=== PATIENT | female | born 1945 | race Hispanic/Latino ===

== ENCOUNTER → 2022-10-31 | Outpatient (CLI) | payer MEDICARE, OTHER ==
[~2022-10-31] MED LIST: IOHEXOL 350 MG/ML 100ML INFUS..BTL IV ONE; METOPROLOL TARTRATE 1 MG/ML 5ML VIAL IV ONE
== END | disposition home or self-care (01) ==
LOC: RAH 09:08
PROVIDERS: ATTEND Student in an Organized Health Care Education/Training Program
DX: I25.10 Atherosclerotic heart disease of native coronary artery without angina pectoris (principal); M47.815 Spondylosis without myelopathy or radiculopathy, thoracolumbar region; R06.02 Shortness of breath
CPT/HCPCS: 75574; J3490 ×2; Q9967

== ENCOUNTER 2023-01-01 05:53 | Day surgery (SDC) | payer MEDICARE, OTHER ==
[2022-12-27 08:24] LABS: BASOPHILS % (AUTO) 0.2 % (0.0-5.0); HEMATOCRIT 42.4 % (36-48); LYMPHOCYTES % (AUTO) 34.1 % (21.0-51.0); MEAN CORPUSCULAR HEMOGLOBIN 29.8 pg (27.0-33.0); MEAN CORPUSCULAR HGB CONC 32.5 g/dL (32.0-36.0); MEAN CORPUSCULAR VOLUME 91.6 fL (79-99); MONOCYTES % (AUTO) 8.4 % (3.0-13.0); PLATELET COUNT (AUTO) 241 K/uL (130-400); RED BLOOD CELL COUNT(AUTO) 4.63 MIL/uL (4.00-5.50); RED CELL DISTRIBUTION WIDTH 13.8 % (11.0-15.5); WHITE BLOOD COUNT (AUTO) 5.9 K/uL (4.8-10.8)
[2022-12-27 08:32] LABS: CREATININE 0.9 mg/dL (0.5-1.5); POTASSIUM 3.9 mmol/L (3.5-5.1)
[2022-12-27 08:35] LABS: INR 0.94 (0.85-1.15); PROTHROMBIN TIME 10.9 SEC (9.6-11.6)
[2022-12-27 08:36] LABS: PARTIAL THROMBOPLASTIN TIME 27.3 SEC (26.3-35.5)
[2022-12-27 08:52] LABS: B-TYPE NATRIURETIC PEPTIDE 50 pg/mL (0-100)
[2022-12-27 09:17] VITALS: BP 164/73
[2023-01-01] VITALS (8 sets, daily range): BP systolic 120–166; BP diastolic 57–67
[~2023-01-01] VITALS: Ht 160 cm; Wt 77.6 kg
[~2023-01-01 05:53] MED LIST changes: +ALEN70TA80 PO; +ESOM40CA54 PO; +FLUT1AER IH; -IOHEXOL 350 MG/ML 100ML INFUS..BTL IV ONE; +LEVO50CA4 PO; +LOSA50TA64 PO; +METF-444 PO; -METOPROLOL TARTRATE 1 MG/ML 5ML VIAL IV ONE; +MONT-39 PO; +VERA120T20 PO; +VERA240T95 PO; +VITAMIN D2 PO
[2023-01-01] MEDS ORDERED: DiphenhydrAMINE HCL 50 MG/ML VIAL ONE ×2 (06:26→07:27)
[2023-01-01] MEDS ORDERED: SOLU-MEDROL 125MG VIAL ONE ×2 (06:26→07:27)
[2023-01-01] MEDS ORDERED: 0.9%NACL 1000ML 1,000 ML IV ONE (06:26)
[2023-01-01] MEDS ORDERED: LIDOCAINE HCL 400MG/20ML VIAL ONE ×2 (07:15→08:29)
[2023-01-01] MEDS ORDERED: MIDAZOLAM HCL 1 MG/ML 2ML VIAL ONE ×2 (07:15→07:45)
[2023-01-01] MEDS ORDERED: FENTANYL CITRATE PF 50 MCG/1 ML 2ML VIAL ONE (07:15)
[2023-01-01] MEDS ORDERED: IOHEXOL 350 MG/ML 100ML INFUS..BTL IV ONE (07:15)
[2023-01-01] MEDS ORDERED: IOHEXOL-350 50ML VIAL IV ONE (07:15)
[2023-01-01] MEDS ORDERED: NITROGLYCERIN 50MG VIAL ONE (07:16)
[2023-01-01] MEDS ORDERED: VERAPAMIL HCL 2.5 MG/ML VIAL ONE (07:16)
[2023-01-01] MEDS ORDERED: HEPARIN 10,000 UNIT/10ML (1,000 UNIT/ML) VIAL ONE (07:50)
[2023-01-01] MEDS ORDERED: GLUCAGON 1MG KIT 1 MG ML IM PRN (08:30)
[2023-01-01] MEDS ORDERED: DEXTROSE 50%-WATER 50 ML DISP.SYRIN IV PRN (08:30)
== END 2023-01-01 11:45 | disposition home or self-care (01) ==
LOC: DAH 05:53
PROVIDERS: ATTEND Student in an Organized Health Care Education/Training Program
DX: I25.119 Atherosclerotic heart disease of native coronary artery with unspecified angina pectoris (principal); R94.31 Abnormal electrocardiogram [ECG] [EKG]; I10 Essential (primary) hypertension; E11.8 Type 2 diabetes mellitus with unspecified complications; E78.5 Hyperlipidemia, unspecified; F41.9 Anxiety disorder, unspecified; J45.909 Unspecified asthma, uncomplicated; Z79.899 Other long term (current) drug therapy; Z98.890 Other specified postprocedural states; Z90.49 Acquired absence of other specified parts of digestive tract; Z90.710 Acquired absence of both cervix and uterus; Z82.49 Family history of ischemic heart disease and other diseases of the circulatory system; Z83.3 Family history of diabetes mellitus; Z80.9 Family history of malignant neoplasm, unspecified; Z79.84 Long term (current) use of oral hypoglycemic drugs; Z79.01 Long term (current) use of anticoagulants
CPT/HCPCS: 80048; 83880; 85025; 85610; 85730; 36415; 71045; 93005; 93458; 82948 ×2; C1769; C1894; J1200; J3010; J3490 ×3; J7030; J2930; J1644 ×2; J2250 ×2; Q9967; A4215; A4335; A4222; A4221; A4663; A4216; A4606; Q9965 ×2; A4223 ×2; A4554; 99156; 99157